=== PATIENT | male | born 1990 | race Caucasian/White ===

== ENCOUNTER 2016-07-08 22:54 | Emergency (ER) | payer OTHER ==
[2016-07-08 23:01] VITALS: BP 166/100
--- NOTE | 2016-07-08 23:19 | ED UPPER/LOWER EXTREMITY COMPL ---
History of Present Illness General Chief Complaint: Hand or Wrist Injury Stated Complaint: PUNCHED WALL WITH BOTH HANDS. Source: patient Exam Limitations: no limitations Vital Signs & Intake/Output Vital Signs & Intake/Output Vital Signs Date Time Temp Pulse Resp B/P Pulse O2 O2 Flow FiO2 Ox Delivery Rate 07/08 2301 93 20 166/100 99 ED Intake and Output 07/09 0000 07/08 1200 Intake Total Output Total Balance Patient 155 lb Weight Allergies Coded Allergies: NO KNOWN ALLERGIES (02/08/12) Reconcile Medications Lisdexamfetamine Dimesylate (Vyvanse) 30 MG CAPSULE 1 CAP PO QAM ADHD ( Reported) Triage Note: PER PT PUNCHED A WALL WITH MY HANDS. BUT MY RT HAND BY PINKY IS SWOLLEN. UTD WITH TETANUS Triage Nurses Notes Reviewed? yes Onset: Abrupt Duration: constant Timing: single episode today Severity: moderate Severity Numbers: 5 HPI: Patient is a 25-year-old male who presents emergency and that today patient accidentally dropped a stone became angry and subsequently punched a brick wall resulting in acute onset of right hand pain localized to the fifth MCP joint and swelling. Patient is right arm dominant. Denies any wrist pain. Skin is still intact. (DREA GRANT) Past History Travel History Traveled to [place] past 21 day No Medical History Any Pertinent Medical History? none Neurological: NONE EENT: NONE Cardiovascular: NONE Respiratory: NONE Gastrointestinal: NONE Hepatic: NONE Renal: NONE Musculoskeletal: NONE Psychiatric: NONE Endocrine: NONE Surgical History Surgical History: non-contributory Psychosocial History What is your primary language Scottish Tobacco Use: Quit >30 days ago Family History Hx Contributory? No (DREA GRANT) Review of Systems Review of Systems Constitutional: Reports: no symptoms. EENTM: Reports: no symptoms. Respiratory: Reports: no symptoms. Cardiovascular: Reports: no symptoms. Gastrointestinal/Abdominal: Reports: no symptoms. Genitourinary: Reports: no symptoms. Musculoskeletal: Reports: see HPI, joint pain. Skin: Reports: no symptoms. Neurological/Psychological: Reports: no symptoms. Hematologic/Endocrine: Reports: no symptoms. Immunological: Reports: no symptoms. All Other Systems: Reviewed and Negative (DREA GRANT) Physical Exam Physical Exam General Appearance: no apparent distress, alert, comfortable Neurologic/Tendon: normal sensation, normal motor functions, normal tendon functions, responds to pain, no evidence tendon injury Skin: intact, normal color, warm/dry Comments: Well-developed well-nourished no apparent distress. HEENT: Atraumatic, extraocular motion intact Neck: Supple, no lymphadenopathy Back: Nontender Respiratory: No respiratory distress Extremities: Right elbow normal section nontender full active range of motion Right wrist normal section nontender full active range of motion Right hand noted- fifth MCP swelling point tenderness 1-5 phalanges nontender Neuro: Alert and oriented x3 Skin intact no laceration Psych: Mood affect normal, normal memory normal judgment. (DREA GRANT) Progress Differential Diagnosis: arterial insufficiency, compartment syndrome, contusion, dislocation, DVT, fracture, gout, septic arthritis, sprain, tendon injury Plan of Care: Orders Procedure Date/time Status XRY-HAND, 3 View RIGHT 07/08 2302 Active Discussed patient and x-ray results with Dr. Hewitt who advised patient to be put in the ulnar gutter splint and applied gentle volar pressure and traction to better manually align patient's fracture. She did not request or advise a hematoma block in which she advised just a ulnar gutter splint and have patient follow up with her next week. Using initially [place] patient then was placed in a ulnar gutter splint using orthopedic glass then Elan wrap was applied pre-and post-neurovascular was intact I did applied gentle distal volar pressure to the fifth metacarpal bone for better alignment per Dr. Hewitt. Upon discharge patient looks well no apparent distress and will comply with discharge instructions and had no questions. (JARRETT BONILLA,DREA) Diagnostic Imaging: Viewed by Me: Radiology Read. Radiology Impression: acute abnormality, fracture Comments: PATIENT: PIPPA GUERRERO PRESENT AGE: 25 PATIENT ACCOUNT NO: [id number] : 89 LOCATION: [facility] ORDERING PHYSICIAN: DREA BONILLA SERVICE DATE: 07/08/16 EXAM TYPE: RAD - XRY-HAND, RIGHT EXAMINATION: XR HAND, RIGHT CLINICAL INFORMATION: Right hand pain and swelling following injury. The patient reportedly punched a wall. COMPARISON: None. TECHNIQUE: AP, lateral, and oblique views of the right hand. FINDINGS: Multiple views of the right hand demonstrate an acute fracture traversing the neck of the fifth metacarpal bone of the right hand. There is volar angulation of the distal fracture fragment relative to the proximal fracture fragment. No additional fractures are identified. Joint spaces appear grossly preserved. IMPRESSION: Acute fracture traversing the neck of the right fifth metacarpal bone with volar angulation of the distal fracture fragment relative to the proximal fracture fragment. No appreciable intra-articular extension into the right fifth metacarpophalangeal joint. (DREA GRANT) Departure Departure Disposition: HOME OR SELF CARE Condition: Stable Clinical Impression Primary Impression: Fracture of fifth metacarpal bone Referrals: KASH TOLENTINO,JOCELINE MOISE APRN (PCP/Family) Referred to [facility] as new patient No Additional Instructions: As discussed the splint has been applied to in the emergency room, the this on at all times until you follow up with the orthopedic doctor. On Sunday please follow up and establish Dr. HEWITT- orthopedic doctor to make an appointment to be seen for further evaluation and treatment. If symptoms worsen return to emergency room. Begin [id number] ibuprofen for pain and inflammation. Departure Forms: Customer Survey General Discharge Information (DREA GRANT) PA/VERIFICATION LEAD Co-Sign Statement Statement: ED Attending supervision documentation- [] I saw and evaluated the patient. I have also reviewed all the pertinent lab results and diagnostic results. I agree with the findings and the plan of care as documented in the PA's/VERIFICATION LEAD's documentation. [x] I have reviewed the ED Record and agree with the PA's/VERIFICATION LEAD's documentation. [] Additions or exceptions (if any) to the PAs/VERIFICATION LEAD's note and plan are summarized below: [] (IRA TOLENTINO,BETY Mark)
[2016-07-08] MEDS ORDERED: VYVANSE30 M1 PO (23:45)
--- NOTE | 2016-07-08 23:49 | RADIOLOGY REPORT ---
EXAMINATION: XR HAND, RIGHT CLINICAL INFORMATION: Right hand pain and swelling following injury. The patient reportedly punched a wall. COMPARISON: None. TECHNIQUE: AP, lateral, and oblique views of the right hand. FINDINGS: Multiple views of the right hand demonstrate an acute fracture traversing the neck of the fifth metacarpal bone of the right hand. There is volar angulation of the distal fracture fragment relative to the proximal fracture fragment. No additional fractures are identified. Joint spaces appear grossly preserved. IMPRESSION: Acute fracture traversing the neck of the right fifth metacarpal bone with volar angulation of the distal fracture fragment relative to the proximal fracture fragment. No appreciable intra-articular extension into the right fifth metacarpophalangeal joint.
== END 2016-07-09 00:41 ==
LOC: ERH 22:54
DX: S62.330A Displaced fracture of neck of second metacarpal bone, right hand, initial encounter for closed fracture (principal); W22.01XA Walked into wall, initial encounter
CPT/HCPCS: 73130-RT